=== PATIENT | female | born 1950 | race Caucasian/White ===

== ENCOUNTER → 2016-09-15 | Outpatient (CLI) | payer OTHER, MEDICARE | LOC: FIMAGING 09:45 | PROVIDERS: ATTEND Physician Assistant | DX: M17.12 Unilateral primary osteoarthritis, left knee (principal); M25.462 Effusion, left knee; M71.22 Synovial cyst of popliteal space [Baker], left knee; M16.12 Unilateral primary osteoarthritis, left hip ==

== ENCOUNTER 2016-09-29 09:09 | Inpatient (IN) | payer OTHER, MEDICARE ==
[2016-09-29] MEDS ORDERED: ceFAZolin 1 GM/5 ML SYR ONE (09:38)
[2016-09-29] MEDS ORDERED: TRANEXAMIC ACID 900 MG in NS 100 ML IV ONE (10:00)
[2016-09-29] MEDS ORDERED: ACETAMINOPHEN 325 MG TAB PO ONE (10:00)
[2016-09-29] MEDS ORDERED: FAMOTIDINE 20 MG TAB PO ONE (10:00)
[2016-09-29] MEDS ORDERED: CEFAZOLIN 2 GM/DEXTR 100 ML IV ONE (10:00)
[2016-09-29] MEDS ORDERED: ROPI/epiNEPH/KETOROLAC/morphINE JOINT COCKTAIL IU ONE (10:00)
[2016-09-29] MEDS ORDERED: CHLORHEXIDINE GLUC HIBICLENS 118 ML BTL TP ONE (10:00)
[2016-09-29] MEDS ORDERED: LIDOCAINE 1% 2 ML INJ ONE (10:04)
[2016-09-29] MEDS ORDERED: LR 1,000 ML IV ONE (10:50)
[2016-09-29] MEDS ORDERED: LIDOCAINE 1% 5 ML SDV ID PRN (10:50)
[2016-09-29] MEDS ORDERED: fentaNYL 100 MCG/2 ML INJ ONE (11:26)
[2016-09-29] MEDS ORDERED: PROPOFOL/EMULSION 500 MG/50 ML BOTTLE IV ONE ×3 (11:26→13:34)
[2016-09-29] MEDS ORDERED: ONDANSETRON 4 MG/2 ML VIAL ONE (11:35)
[2016-09-29] MEDS ORDERED: PHENYLEPHRINE HCL 100 MCG/ML SYR ONE ×2 (12:37→13:36)
[2016-09-29] MEDS ORDERED: THROMBIN (BOVINE) 5,000 UNIT VIAL TP ONE (12:41)
[2016-09-29] MEDS ORDERED: CALCIUM CHLORIDE 1 GM/10 ML INJ ONE (12:41)
[2016-09-29] MEDS ORDERED: VASOPRESSIN 20 UNIT/ML VIAL ONE (13:10)
[2016-09-29] MEDS ORDERED: PROMETHAZINE HCL 25 MG SUPPR PR PRN (14:15)
[2016-09-29] MEDS ORDERED: ONDANSETRON 4 MG/2 ML VIAL IVP PRN (14:15)
[2016-09-29] MEDS ORDERED: MAGNESIUM HYDROXIDE 30 ML UDCUP PO PRN (14:15)
[2016-09-29] MEDS ORDERED: diphenhydrAMINE 25 MG CAP PO PRN (14:15)
[2016-09-29] MEDS ORDERED: CYCLOBENZAPRINE 10 MG TAB PO PRN (14:15)
[2016-09-29] MEDS ORDERED: LACTULOSE 20 GM/30 ML UDCUP PO PRN (14:15)
[2016-09-29] MEDS ORDERED: DIPHENOXYLATE/ATROPINE LOMOTIL 1 TAB PO PRN (14:15)
[2016-09-29] MEDS ORDERED: TEMAZEPAM 15 MG CAP PO PRN (14:15)
[2016-09-29] MEDS ORDERED: ONDANSETRON DISINTEGRATING 4 MG TAB PO PRN (14:15)
[2016-09-29] MEDS ORDERED: traMADol 50 MG TAB PO PRN (14:15)
[2016-09-29] MEDS ORDERED: POLYETHYLENE GLYCOL 3350 17 GM PKT PO PRN (14:15)
[2016-09-29] MEDS ORDERED: PHARMACY PAIN CONSULT 1 EA MISC PRN (14:15)
[2016-09-29] MEDS ORDERED: DIAZEPAM 5 MG TAB PO PRN (14:15)
[2016-09-29] MEDS ORDERED: METOCLOPRAMIDE 10 MG/2 ML VIAL IVP PRN (14:15)
[2016-09-29] MEDS ORDERED: BISACODYL 10 MG SUPP PR PRN (14:15)
[2016-09-29] MEDS ORDERED: LR 1,000 ML IV SCH (14:30)
[2016-09-29] MEDS: ACETAMINOPHEN 325 MG TAB PO SCH (17:14)
[2016-09-29] MEDS: oxyCODONE IR 5 MG TAB PO PRN ×2 (17:14→21:11)
[2016-09-29] MEDS ORDERED: NON-FORMULARY NEW DRUG (Insulin Lispro [Humalog] 0 UNIT) SQ SCH (17:30)
[2016-09-29] MEDS ORDERED: NON-FORMULARY NEW DRUG (Simvastatin [Zocor 40 Mg] 40 MG) PO SCH (18:00)
[2016-09-29] MEDS ORDERED: ATORVASTATIN CALCIUM 20 MG TAB PO SCH (18:00)
[2016-09-29] MEDS: INSULIN LISPRO 100 UNIT/ML SC SCH (18:29)
[2016-09-29] MEDS ORDERED: INSULIN GLARGINE 100 UNITS/ML SYRINGE SC SCH (21:00)
[2016-09-29] MEDS: ceFAZolin 2 GM/DEXTROSE 100 ML IV SCH (21:07)
[2016-09-29] MEDS: FAMOTIDINE 20 MG TAB PO SCH (21:11)
[2016-09-29] MEDS: SENNOSIDES/DOCUSATE SODIUM TAB PO SCH (21:11)
[2016-09-29] MEDS: ASPIRIN 325 MG TAB PO SCH (22:04)
[2016-09-30] MEDS: ACETAMINOPHEN 325 MG TAB PO SCH ×3 (00:37→11:41)
[2016-09-30] MEDS: oxyCODONE IR 5 MG TAB PO PRN ×3 (00:38→13:11)
[2016-09-30] MEDS: ceFAZolin 2 GM/DEXTROSE 100 ML IV SCH (03:11)
[2016-09-30 05:25] LABS: HEMATOCRIT 34.2 % (38.0-47.0); HEMOGLOBIN 11.5 g/dL (12.6-16.3)
--- NOTE | 2016-09-30 07:14 | PDIAF ---
- Diagnosis Diagnosis: left knee djd Code Status: Full Code - Medication Management Discharge Medications: Medications to Continue on Transfer Cholecalciferol Vit D3 [Vitamin D3 (*)] 5,000 units PO DAILY 03/22/14 [Last Taken 09/28/16 07:00] Insulin Glargine [Lantus 100 UNITS/ML (*)] 55 units SC HS 03/22/14 [Last Taken 09/28/16 21:00] Insulin Lispro [Humalog] 22 - 30 unit SQ AC 03/22/14 [Last Taken 09/28/16 19:00 28] Simvastatin [Zocor 40 mg] 40 mg PO DAILY@1800 03/22/14 [Last Taken 09/28/16 20: 00] LISINOPRIL/HYDROCHLOROTHIAZIDE [PRINZIDE 20-25 MG TABLET] 0.5 each PO DAILY [Last Taken 09/28/16 07:00] Anastrozole [Arimidex 1 mg (*)] 1 mg PO DAILY 09/25/16 [Last Taken 09/29/16 04: 30] Herbals/Supplements -Info Only 1 ea PO DAILY 09/25/16 [Last Taken 09/28/16 07:00 ] Aspirin [Aspirin 325 mg (*)] 325 mg PO DAILY #0 tab 09/30/16 [Last Taken Unknown ] Diazepam [Valium 5 MG (*)] 5 mg PO Q6HRS PRN #30 tab 09/30/16 [Last Taken Unknown] oxyCODONE IR [Oxycodone Ir (*)] 5 - 10 mg PO Q3HRS PRN #90 tab 09/30/16 [Last Taken Unknown] Discharge Medications: Refer to the Discharge Home Medication list for PRN reason. - Orders Services needed: Physical Therapy Diet Recommendation: no restrictions on diet Diet Texture: Regular Texture Diet Activity/Weight Bearing Restrictions: wbat. rom as tolerated. daily dressing changes. may shower without bandage, no soaking. aspirin 325 mg po daily for 6 weeks. f/u at two weeks. seek attn for increasing pain, s/s infection or other focal complaints - Follow Up Care Current Providers and Referrals: Jazmine Downing DO [Primary Care Provider] -
--- NOTE | 2016-09-30 07:30 | GDS ---
[f rep st] DISCHARGE SUMMARY ADMIT DIAGNOSIS: Left knee degenerative joint disease. DISCHARGE DIAGNOSIS: Left knee degenerative joint disease. PROCEDURE: Left total knee arthroplasty-MAKOplasty. OPERATIVE INDICATIONS: The patient is a 66-year-old woman with end-stage arthritis to her left knee . Clinical and radiographic features are consistent with this. She has failed all attempts at cons ervative management. I have therefore recommended total knee replacement. She understood the risks , benefits, alternatives, and wished to proceed. Written consent was signed and placed in patient's chart. HOSPITAL COURSE: The patient was admitted overnight after uncomplicated total knee arthroplasty. S he tolerated the procedure well. At the time of discharge, she is tolerating an oral diet. Her bon n is well controlled on oral medicines. She is voiding and stooling without difficulty. Dressing i s clean, dry, and intact. She has no calf swelling or tenderness. Negative Homans bilaterally. X- rays are stable with anatomic alignment. No fracture or lucency. DISCHARGE ACTIVITY: She is weightbearing as tolerated. Range of motion as tolerated. Daily dressi ng changes. No soaking or immersion. May shower without the bandage. Follow up in 2 weeks. Seek attention for increasing redness, swelling, drainage, discharge, or other focal complaint. /[id number]/MODL
[2016-09-30 08:03] VITALS: BP 117/73; PULSE 71; RESP 15; TEMP 97.7; O2SAT 97
[2016-09-30] MEDS: FAMOTIDINE 20 MG TAB PO SCH (08:42)
[2016-09-30] MEDS: ASPIRIN 325 MG TAB PO SCH (08:42)
[2016-09-30] MEDS: SENNOSIDES/DOCUSATE SODIUM TAB PO SCH (08:43)
[2016-09-30] MEDS ORDERED: LISINOPRIL PO SCH (09:00)
[2016-09-30] MEDS ORDERED: Herbals/Supplements -Info Only PO SCH (09:00)
[2016-09-30] MEDS ORDERED: ANASTROZOLE 1 MG TAB PO SCH (09:00)
[2016-09-30] MEDS ORDERED: HYDROCHLOROTHIAZIDE PO SCH (09:00)
[2016-09-30] MEDS ORDERED: CHOLECALCIFEROL VIT D3 1,000 UNITS TAB PO SCH (09:00)
[2016-09-30] MEDS: INSULIN LISPRO 100 UNIT/ML SC SCH ×2 (10:12→12:23)
== END 2016-09-30 13:49 | disposition home health service (06) | DRG 470 ==
LOC: F3N 09:09
PROVIDERS: ADMIT Orthopaedic Surgery; ATTEND Orthopaedic Surgery
PROC: 8E0Y0CZ Robotic Assisted Procedure of Lower Extremity, Open Approach (ICD-10-PCS; principal; 2016-09-29 10:30)
PROC: 0SRD0J9 Replacement of Left Knee Joint with Synthetic Substitute, Cemented, Open Approach (ICD-10-PCS; principal; 2016-09-29 10:30)
DX: M17.12 Unilateral primary osteoarthritis, left knee (principal)
CPT/HCPCS: 97161-GP; 97165-GO; 97530-GP; C1713; G8978-GP-CI; G8979-GP-CI; G8980-GP-CI; G8987-GO-CI; G8988-GO-CI; G8989-GO-CI; J0171; J0690; J1815; J1885; J2370; J2405; J2704; J2795; J3010

== ENCOUNTER 2016-10-06 21:46 | Emergency (ER) | payer OTHER, MEDICARE ==
[2016-10-06 22:26] VITALS: RESP 16
[2016-10-06] MEDS ORDERED: predniSONE 20 MG TAB PO ONE (23:25)
[2016-10-06] MEDS ORDERED: diphenhydrAMINE 25 MG CAP PO ONE (23:26)
[2016-10-06] MEDS ORDERED: FAMOTIDINE 20 MG TAB PO ONE (23:26)
--- NOTE | 2016-10-06 23:30 | EDPHY ---
H & P HPI/ROS: This 66-year-old female with past medical history of hypertension, diabetes, breast cancer and recent root canal a little over two weeks ago on her left lower molar as well as a left total knee replacement one week ago, presents to the emergency department [facility] for complaints of right-sided facial swelling. The patient was unaware of this until her sister came to her home this evening and pointed out that her right lower lip and right cheek was swollen. She has no facial or dental pain. Her tongue and throat do not feel swollen. She has no difficulty swallowing or breathing. She does not feel swelling under her tongue or in her neck. She does not have a rash. She has not had this happen before. She completed Amoxicillin for her root canal over 10 days ago. She has been taking oxycodone and diazepam as needed since the knee surgery. She is on Lisinopril and has been taking it for about 10 year. She has an appointment with her business information analyst, Dr. Monroy, tomorrow morning at 8am. Past Medical/Surgical History: Past medical history: Includes hypertension, diabetes mellitus, high cholesterol, breast cancer diagnosed in 2013 treated with a lumpectomy, chemo and radiation. Past surgical history: Lumpectomy, cholecystectomy, hysterectomy, bilateral tubal ligation. Family history: Both her parents are . Her mother had diabetes, hypertension and "mini strokes" and her father had mesothelioma. Social History: Denies tobacco or marijuana use. Occasional alcohol use. Smoking Status: Never smoked Physical Exam: General Appearance: Alert and no distress. Eyes: Pupils equal and round no injection. Mouth: Right lower lip with mild-moderate swelling, right lower cheek with mild -moderate swelling. No tongue, sublingual, or uvula swelling. Airway patent. No dental caries. No cheek, tooth or gum tenderness to palpation. No fluctuant areas palpated. Respiratory: Chest is nontender, lungs are clear to auscultation. Cardiac: Regular rate and rhythm. Musculoskeletal: No edema; left knee with decreased ROM due to recent surgery. Neck: Supple and nontender. No swelling or lymphadenopathy. Skin: No rashes or lesions. DIFFERENTIAL DIAGNOSIS: After history and physical exam differential diagnosis was considered for ACEI induced angioedema; allergic reaction; No evidence for Nick's angina. Constitutional: Initial Vital Signs Temperature (C) 98.1 F 10/06 22:19 Heart Rate 106 H 05/15/17 22:19 Respiratory Rate 16 10/06/16 22:19 Blood Pressure 111/64 10/06/16 22:19 O2 Sat (%) 94 10/06/16 22:19 O2 Delivery Mode Room Air Allergies/Adverse Reactions: hydrocodone [From Vicodin] Allergy (Verified 10/06/16 22:17) Sulfa (Sulfonamide Antibiotics) Allergy (Verified 10/06/16 22:17) Unknown Home Medications: Medication Instructions Recorded Cholecalciferol Vit D3 [Vitamin D3 5,000 units PO DAILY 03/22/14 (*)] Insulin Glargine [Lantus 100 55 units SC HS 03/22/14 UNITS/ML (*)] Insulin Lispro [Humalog] 22 - 30 unit SQ AC 03/22/14 Simvastatin [Zocor 40 mg] 40 mg PO DAILY@1800 03/22/14 LISINOPRIL/HYDROCHLOROTHIAZIDE 0.5 each PO DAILY 02/18/15 [PRINZIDE 20-25 MG TABLET] Anastrozole [Arimidex 1 mg (*)] 1 mg PO DAILY 09/25/16 Herbals/Supplements -Info Only 1 ea PO DAILY 09/25/16 Aspirin [Aspirin 325 mg (*)] 325 mg PO DAILY #0 tab 09/30/16 Diazepam [Valium 5 MG (*)] 5 mg PO Q6HRS PRN #30 tab 09/30/16 oxyCODONE IR [Oxycodone Ir (*)] 5 - 10 mg PO Q3HRS PRN #90 tab 09/30/16 AMOXICILLIN TRIHYDRATE [Amoxil] 875 mg PO BID #14 tablet 10/06/16 predniSONE [predniSONE TAPER] 10 mg PO DAILY #15 tab 10/06/16 Medical Decision Making ED Course/Re-evaluation: The patient was seen examined, vital signs were reviewed. She is in no distress. Symptoms look consistent with angioedema and the patient is on lisinopril. She was advised to not take the lisinopril tomorrow and discuss this possibility with the prescribing physician, Dr. Monroy, her business information analyst. She has an appointment with Dr. Monroy at 8:00 a.m. tomorrow morning. She was given prednisone 60 mg as well as Benadryl 25 mg and Pepcid 20 mg orally in the emergency department. She was given a prescription for a prednisone taper and advised to continue the other [id number] medications as directed. She was also advised that the prednisone will elevated her blood glucose. Another possibility for the swelling is a dental infection although her recent root canal was on the opposite side of her mouth and I see no sign of this on my exam tonight. She will contact her dentist and see him this week. She may need dental x-rays. She was advised to return to the emergency room immediately should she have increased swelling, difficulty swallowing or breathing or any other concerns. She was given a prescription for amoxicillin and told only start this if her dentist finds a dental infection. - Data Points Medications Given: Discontinued Medications Diphenhydramine HCl (Benadryl) 25 mg PO EDNOW ONE Stop: 10/06/16 23:27 Last Admin: 10/06/16 23:33 Dose: 25 mg Famotidine (Pepcid) 20 mg PO EDNOW ONE Stop: 10/06/16 23:27 Last Admin: 10/06/16 23:33 Dose: 20 mg Prednisone (Prednisone) 60 mg PO EDNOW ONE Stop: 10/06/16 23:26 Last Admin: 10/06/16 23:33 Dose: 60 mg Departure - Departure Disposition: Home, Routine, Self-Care Clinical Impression: Angio-edema Condition: Good Instructions: Angioedema (ED) Additional Instructions: Do not take your Lisinopril before your appointment with Dr. Monroy. Your angioedema may be due to the Lisinopril. Discuss this with Dr. Monroy. Make an appointment with your dentist in the next 1-2 days. Have a dental exam to see if there is any infection in the teeth on the left side of your face. I do not see any evidence of a dental infection tonight. Do not take the amoxicillin unless your dentist thinks there is an infection. Start the prednisone tomorrow. Continue Benadryl and Pepcid as directed. You can buy these over the counter without a prescription. Return to the ER immediately if any worsening of symptoms as discussed. Referrals: Jazmine Downing DO [Primary Care Provider] - As per Instructions hSan Monroy MD [Medical Doctor] - As per Instructions (Keep your appointment with Dr. Monroy tomorrow at 8am.) Prescriptions: AMOXICILLIN TRIHYDRATE [Amoxil] 875 mg PO BID #14 tablet predniSONE [predniSONE TAPER] 10 mg PO DAILY #15 tab
[2016-10-06 23:53] VITALS: BP 102/69; PULSE 95; TEMP 98.4; O2SAT 93
== END 2016-10-06 23:53 | disposition home or self-care (01) ==
LOC: CED 21:46
DX: T78.3XXA Angioneurotic edema, initial encounter (principal); I10 Essential (primary) hypertension; E11.9 Type 2 diabetes mellitus without complications; Z79.4 Long term (current) use of insulin; Z79.82 Long term (current) use of aspirin; Z85.3 Personal history of malignant neoplasm of breast

== ENCOUNTER 2016-10-09 08:03 | Emergency (ER) | payer OTHER, MEDICARE ==
[2016-10-09 08:20] VITALS: RESP 18
--- NOTE | 2016-10-09 08:25 | EDPHY ---
H & P HPI/ROS: CHIEF COMPLAINT: Left knee pain HISTORY OF PRESENT ILLNESS: The patient is a 66-year-old female with left total knee replacement 10 days ago, 09/29, who presents with acute left knee pain after a mechanical fall this morning. She slipped and fell in her garage this morning. The patient fell on her left knee and hit the back of her head. No LUTZ or neck pain. She did not lose consciousness. The patient is concerned she reinjured her left knee because she had bleeding on the bandage over her surgical site and her pain became more severe. The patient is using a walker to ambulate and is able to ambulate after the injury. She takes daily Aspirin. REVIEW OF SYSTEMS: A comprehensive 10 point review of systems is otherwise negative aside from elements mentioned in the history of present illness. Past Medical/Surgical History: Hypertension, Hyperlipidemia, Breast cancer Past Surgical History: Cholecystectomy, Hysterectomy, Lumpectomy, Left knee surgery 09/29/16. Social History: Retired. No recent alcohol. Smoking Status: Never smoked Physical Exam: General Appearance: Alert, pleasant Head: right occipital swelling and tenderness Eyes: No conjunctival erythema, PERRLA, EOMI ENT, Mouth: no oral trauma, no bony tenderness Neck: no midline tenderness, full range of motion without pain Respiratory: No chest wall tenderness, lungs clear bilaterally Cardiovascular: Regular rate and rhythm Abdomen: Abdomen is soft and non tender Skin: No lacerations, no abrasions Back: No midline T/L/S tenderness Extremities: Left lower extremity: surgical wound, clean, dry, intact. [place] in place. There is moderate knee joint effusion, no active bleeding. Blood on surgical bandage, but not on the skin or wound. Neurological: A&Ox3, normal motor function, normal sensory exam, cranial nerves intact Psychiatric: Mood and affect normal Constitutional: Initial Vital Signs Temperature (C) 36.5 C 10/09/16 08:10 Heart Rate 92 10/09/16 08:10 Respiratory Rate 18 10/09/16 08:10 Blood Pressure 170/91 H 10/09/16 08:10 O2 Sat (%) 95 10/09/16 08:10 O2 Delivery Mode Room Air Allergies/Adverse Reactions: Sulfa (Sulfonamide Antibiotics) Allergy (Verified 10/09/16 08:08) Unknown Home Medications: Medication Instructions Recorded Cholecalciferol Vit D3 [Vitamin D3 5,000 units PO DAILY 03/22/14 (*)] Insulin Glargine [Lantus 100 55 units SC HS 03/22/14 UNITS/ML (*)] Insulin Lispro [Humalog] 22 - 30 unit SQ AC 03/22/14 Simvastatin [Zocor 40 mg] 40 mg PO DAILY@1800 03/22/14 LISINOPRIL/HYDROCHLOROTHIAZIDE 0.5 each PO DAILY 02/18/15 [PRINZIDE 20-25 MG TABLET] Anastrozole [Arimidex 1 mg (*)] 1 mg PO DAILY 09/25/16 Herbals/Supplements -Info Only 1 ea PO DAILY 09/25/16 Aspirin [Aspirin 325 mg (*)] 325 mg PO DAILY #0 tab 09/30/16 Diazepam [Valium 5 MG (*)] 5 mg PO Q6HRS PRN #30 tab 09/30/16 oxyCODONE IR [Oxycodone Ir (*)] 5 - 10 mg PO Q3HRS PRN #90 tab 09/30/16 predniSONE [predniSONE TAPER] 10 mg PO DAILY #15 tab 10/06/16 Medical Decision Making - Diagnostics Imaging: I viewed and interpreted images myself ED Course/Re-evaluation: The patient had left total knee replacement 10 days ago, 10/09/16. This morning she had a mechanical fall and fell on her left knee and hit the back of her head. On exam her left knee had a healing surgical wound with srheya intact. I ordered a knee x-ray to look for further injury. I do not suspect serious head injury at this time. Patient does not require head CT. Knee x-ray is normal. I will have the patient followup with Dr. Chiu, her Orthopedic surgeon, if pain persists. Differential Diagnosis: Differential diagnosis includes though it is not limited to fracture, intracranial hemorrhage, pneumothorax, hemothorax, intra-abdominal hemorrhage. Departure - Departure Disposition: Home, Routine, Self-Care Clinical Impression: Contusion of left knee Qualifiers: Encounter type: initial encounter Qualified Code(s): S80.02XA - Contusion of left knee, initial encounter Head injury Qualifiers: Encounter type: initial encounter Qualified Code(s): S09.90XA - Unspecified injury of head, initial encounter Condition: Good Instructions: Head Injury (ED), Knee Pain (ED) Additional Instructions: Please followup with Dr. Chiu as scheduled on Thursday. Referrals: Gilberto Chiu MD [Medical Doctor] - As per Instructions Report Scribed for: Genevieve Vargas Report Scribed by: Geovanna Stephenson Date of Report: 10/09/16 Time of Report: 08:23 Physician Review and Approval Statement: 10/09/16 08:23 Portions of this note were transcribed by a medical office clerk. I personally performed the history, physical exam, and medical decision-making; and confirmed the accuracy of the information in the transcribed note.
[2016-10-09 09:52] VITALS: BP 132/79; PULSE 76; TEMP 97.3; O2SAT 93
== END 2016-10-09 09:30 | disposition home or self-care (01) ==
DX: S80.02XA Contusion of left knee, initial encounter (principal); S09.90XA Unspecified injury of head, initial encounter; I10 Essential (primary) hypertension; Z85.3 Personal history of malignant neoplasm of breast; Z79.82 Long term (current) use of aspirin; W01.0XXA Fall on same level from slipping, tripping and stumbling without subsequent striking against object, initial encounter

== ENCOUNTER → 2016-11-11 | Outpatient (CLI) | payer OTHER, MEDICARE | LOC: BMCIMAGING 13:10 | PROVIDERS: ATTEND Physician Assistant | DX: Z47.1 Aftercare following joint replacement surgery (principal); Z96.652 Presence of left artificial knee joint ==

== ENCOUNTER → 2016-12-09 | Outpatient (CLI) | payer OTHER, MEDICARE | LOC: BMCIMAGING 09:36 | PROVIDERS: ATTEND Physician Assistant | DX: Z47.1 Aftercare following joint replacement surgery (principal); Z96.652 Presence of left artificial knee joint ==

== ENCOUNTER → 2017-02-23 | Outpatient (CLI) | payer OTHER, MEDICARE | LOC: BRMIMAGING 09:07 | PROVIDERS: ATTEND Internal Medicine Hematology & Oncology | DX: Z13.820 Encounter for screening for osteoporosis (principal); M85.89 Other specified disorders of bone density and structure, multiple sites; C50.919 Malignant neoplasm of unspecified site of unspecified female breast ==

== ENCOUNTER → 2017-03-18 | Outpatient (CLI) | payer OTHER, MEDICARE | LOC: BMCIMAGING 08:47 | PROVIDERS: ATTEND Orthopaedic Surgery | DX: Z47.1 Aftercare following joint replacement surgery (principal); Z96.652 Presence of left artificial knee joint ==

== ENCOUNTER → 2017-04-14 | Outpatient (CLI) | payer OTHER, MEDICARE | LOC: FIMAGING 08:42 | PROVIDERS: ATTEND Internal Medicine Hematology & Oncology | DX: Z12.31 Encounter for screening mammogram for malignant neoplasm of breast (principal); Z85.3 Personal history of malignant neoplasm of breast | CPT/HCPCS: G0202 ==

== ENCOUNTER → 2017-09-16 | Outpatient (CLI) | payer OTHER, MEDICARE | LOC: BMCIMAGING 09:34 | PROVIDERS: ATTEND Orthopaedic Surgery | DX: Z47.1 Aftercare following joint replacement surgery (principal); Z96.652 Presence of left artificial knee joint ==

== ENCOUNTER 2017-11-05 20:11 | Emergency (ER) | payer OTHER, MEDICARE ==
--- NOTE | 2017-11-05 20:48 | EDPHY ---
H & P Stated Complaint: L LOWER BACK PAIN,SWEATING/HX 14MM KIDNEY STONE L Source: Patient Exam Limitations: No limitations - Medical/Surgical History Hx Asthma: No Hx Chronic Respiratory Disease: No Hx Diabetes: Yes Hx Cardiac Disease: No Hx Renal Disease: No Hx Cirrhosis: No Hx Alcoholism: No Hx HIV/AIDS: No Hx Splenectomy or Spleen Trauma: No Other PMH: HTN/hyperlipids/ GB/Hyst/Abd surg- tummy tuck, breast ca w/ lumpectomy/lymphnode removal,left knee -09/29/2016, PARATHYROID SX (HIGH CA++), DM - Social History Smoking Status: Never smoked Time Seen by Provider: 11/05/17 20:48 HPI/ROS: HPI: This is a 67-year-old female who presents with Chief Complaint: Left flank pain; L LOWER BACK PAIN,SWEATING/HX 14MM KIDNEY STONE L Location: Left flank, left lower back Quality: Pain Duration: Since yesterday Signs and Symptoms: no fever, no nausea, no vomiting, no hematemesis, no blood in stool, no abdominal bloating, no diarrhea, no back pain, no urinary symptoms , no vaginal bleeding/discharge, no indigestion, no chest pain, no shortness of breath Timing: Worsening, waxes and wanes Severity: Moderate to severe at times Context: Patient presents with sudden onset of left flank pain that has continued to increase in intensity over the last 24 hr. Pain is described as waxing and waning at times. She reports that she has a history of a 14 mm kidney stone on the left side that she believes that this may be related to it. She denies any nausea, vomiting, diarrhea, fever, urinary symptoms. She has not had any heavy lifting or recent increase in activity. No history of back pain. She reports that the most intense pain it is 10/10 and currently it is 3/ 10. She reports that she had a bowel movement yesterday and today without any difficulties. Modifying Factors: None Comment: ROS: see HPI Constitutional: No fever, no chills, no weight loss Eyes: No blurred vision Respiratory: No shortness of breath, no cough Cardiovascular: No chest pain, no palpitations Gastrointestinal: + nausea, no vomiting, no diarrhea, no hematemesis, no blood in stool Genitourinary: No dysuria, no blood in urine Extremities: No myalgias, no edema Neurologic: No weakness, no numbness Skin: No rashes, no petechiae Hematologic: No bruising, no bleeding MEDICAL/SURGICAL/SOCIAL HISTORY: Medical/Surgical history: HTN/hyperlipids/ GB/Hyst/Abd surg- tummy tuck, breast ca w/ lumpectomy/lymphnode removal,left knee -09/29/2016, PARATHYROID SX ( HIGH CA++), DM Social history: Never smoked Family history noncontributory. CONSTITUTIONAL: Nontoxic-appearing elderly white female accompanied by friend at bedside, awake and alert, no obvious distress HEENT: Atraumatic and normocephalic, PERRL, EOMI. Nares patent; no rhinorrhea; no nasal mucosal edema. Tympanic membranes clear. Oropharynx clear, no exudate and moist pink mucosa. Airway patent. No lymphadenopathy. No meningismus. Cardiovascular: Normal S1/S2, regular rate, regular rhythm, without murmur rub or gallop. PULMONARY/CHEST: Symmetrical and nontender. Clear to auscultation bilaterally. Good air movement. No accessory muscle usage. ABDOMEN: Soft, nondistended, nontender, no rebound, no guarding, no peritoneal signs, no masses or organomegaly. + mild reproducible left CVAT. EXTREMITIES: 2/2 pulses, strength 5/5, no deformities, no clubbing, no cyanosis or edema. NEUROLOGICAL: no focal neuro deficits. GCS 15. SKIN: Warm and dry, no erythema. no rash. Good capillary refill. (Rosangela Quershi) Constitutional: Initial Vital Signs Temperature (C) 36.8 C 11/05/17 20:17 Heart Rate 83 11/05/17 20:17 Respiratory Rate 16 11/05/17 20:17 Blood Pressure 159/84 H 11/05/17 20:17 O2 Sat (%) 95 11/05/17 20:17 O2 Delivery Mode Room Air Allergies/Adverse Reactions: Sulfa (Sulfonamide Antibiotics) Allergy (Verified 10/09/16 08:08) Unknown Home Medications: Medication Instructions Recorded Cholecalciferol Vit D3 [Vitamin D3 5,000 units PO DAILY 03/22/14 (*)] Insulin Glargine [Lantus 100 55 units SC HS 03/22/14 UNITS/ML (*)] Insulin Lispro [Humalog] 22 - 30 unit SQ AC 03/22/14 Simvastatin [Zocor 40 mg] 40 mg PO DAILY@1800 03/22/14 LISINOPRIL/HYDROCHLOROTHIAZIDE 0.5 each PO DAILY 02/18/15 [PRINZIDE 20-25 MG TABLET] Herbals/Supplements -Info Only 1 ea PO DAILY 09/25/16 Cephalexin [Keflex (*)] 500 mg PO TID #21 cap 11/05/17 Ondansetron Odt [Zofran Odt 4 mg 4 mg PO Q4 PRN #12 tab 11/05/17 (*)] Medical Decision Making ED Course/Re-evaluation: Vital signs reviewed and stable upon arrival. Labs, urinalysis, IV fluids, IV medications, CT abdomen and pelvis without contrast ordered 2119: Given 1 L normal saline, IV Dilaudid 1 mg, IV Zofran 4 mg x 2 Called by Radiology who advised that CT abdomen and pelvis scan show stable 14 mm right kidney stone with no signs of hydronephrosis or obstruction. There is some mild lower abdominal wall thickening at the skin which is likely due to insulin administration. Patient does not have any left lower quadrant pain. Urinalysis shows infection; sent for culture; IV Rocephin 2 g given Labs reviewed. Creatinine shows 1.2 which is stable. WBCs are 10.8 without left shift. Patient meets outpatient criteria for treatment; prescription for Keflex provided. This patient was seen under the supervision of my secondary supervising physician. I evaluated care for this patient independently. Discussed this patient with Dr. Ferrera who did not see the patient. (Rosangela Qureshi) I did not see this patient while she was in the emergency department. However her care was discussed with the PA while the patient was in the department. I agree with treatment plan and management (Pepe Ferrera) Differential Diagnosis: Flank pain including but not limited to musculoskeletal causes, kidney stone, pyelonephritis, shingles, and intra-abdominal causes such as diverticulitis and appendicitis. (Rosangela Qureshi) - Data Points Laboratory Results: Laboratory Results 11/05/17 20:52 11/05/17 20:52 Microbiology Results: MICROBIOLOGY 11/05/17 21:25 Urine,Clean Catch Urine Culture - Preliminary Gram Neg Bronson Lactose Sort Supervisor Medications Given: Discontinued Medications Hydromorphone HCl (Dilaudid) 1 mg IVP EDNOW ONE Stop: 11/05/17 20:59 Last Admin: 11/05/17 21:05 Dose: 1 mg Sodium Chloride (Ns) 1,000 mls @ 0 mls/hr IV ONCE ONE; Wide Open PRN Reason: Protocol Stop: 11/05/17 20:59 Last Admin: 11/05/17 21:05 Dose: 1,000 mls Ceftriaxone Sodium 2 gm/ (Sodium Chloride) 50 mls @ 100 mls/hr IV EDNOW ONE PRN Reason: Protocol Stop: 11/05/17 22:31 Last Admin: 11/05/17 22:36 Dose: 50 mls Ondansetron HCl (Zofran) 4 mg IVP EDNOW ONE Stop: 11/05/17 20:59 Last Admin: 11/05/17 21:04 Dose: 4 mg Ondansetron HCl (Zofran) 4 mg IVP EDNOW ONE Stop: 11/05/17 23:27 Last Admin: 11/05/17 23:45 Dose: Not Given Ondansetron HCl (Zofran Odt 4 Mg Prepack#2) 1 btl TAKEHOME EDNOW ONE Stop: 11/05/17 23:27 Last Admin: 11/05/17 23:44 Dose: 1 btl Departure - Departure Disposition: Home, Routine, Self-Care Clinical Impression: Lower urinary tract infection, acute Condition: Good Instructions: Cephalexin (By mouth), Ondansetron (By mouth), Kidney Stones (ED) , Urinary Tract Infection in Women (ED) Additional Instructions: Consume a minimum of 8-10 glasses of water or electrolyte fluid replacement drinks that include Gatorade, Powerade, Pedialyte. Take Keflex 500 mg 4 times a day for urinary tract infection. Return to the ER immediately if you experience new, continued or worsening abdominal pain, fevers/chills, inability to tolerate oral intake, new pain, or any other symptoms that concern you. Referrals: Jazmine Downing DO [Primary Care Provider] - 3-4 days, if not improved Prescriptions: Cephalexin [Keflex (*)] 500 mg PO TID #21 cap Ondansetron Odt [Zofran Odt 4 mg (*)] 4 mg PO Q4 PRN #12 tab PRN Reason: Nausea/Vomiting, Use 1st
[2017-11-05] MEDS ORDERED: ONDANSETRON 4 MG/2 ML VIAL IVP ONE ×2 (20:58→23:26)
[2017-11-05] MEDS ORDERED: HYDROmorphONE/DILAUDID 2 MG/ML INJ IVP ONE (20:58)
[2017-11-05] MEDS ORDERED: NS 1,000 ML IV ONE (20:58)
[2017-11-05] MEDS ORDERED: HYDROmorphONE/DILAUDID 1 MG/ML INJ ONE (21:04)
[2017-11-05 21:06] LABS: PLATELET COUNT 247 10^3/uL (150-400)
[2017-11-05 23:18] VITALS: BP 148/75
[2017-11-05] MEDS ORDERED: ONDANSETRON 4MG PREPACK#2 BTL TAKEHOME ONE (23:26)
== END 2017-11-05 23:47 | disposition home or self-care (01) ==
DX: N39.0 Urinary tract infection, site not specified (principal); B96.1 Klebsiella pneumoniae [K. pneumoniae] as the cause of diseases classified elsewhere; E86.9 Volume depletion, unspecified; I10 Essential (primary) hypertension; E11.9 Type 2 diabetes mellitus without complications; Z79.4 Long term (current) use of insulin; Z90.710 Acquired absence of both cervix and uterus
CPT/HCPCS: 74176; 96361; 96365; 96375; 99285; J0696; J1170; J2405

== ENCOUNTER → 2018-04-20 | Outpatient (CLI) | payer OTHER, MEDICARE | LOC: FIMAGING 08:49 | PROVIDERS: ATTEND Family Medicine | DX: Z12.31 Encounter for screening mammogram for malignant neoplasm of breast (principal); Z85.3 Personal history of malignant neoplasm of breast ==

== ENCOUNTER → 2018-09-16 | Outpatient (CLI) | payer OTHER, MEDICARE | LOC: BMCIMAGING 08:42 | PROVIDERS: ATTEND Physician Assistant | DX: M25.561 Pain in right knee (principal); M17.11 Unilateral primary osteoarthritis, right knee ==